=== PATIENT | female | born 1950 | race Caucasian/White ===

== ENCOUNTER 2025-05-16 12:49 | Emergency (ER) | payer MEDICARE, OTHER, SELFPAY ==
[2025-05-16] VITALS (8 sets, daily range): BP systolic 136–174; BP diastolic 69–86; PULSE 55–82; RESP 18–20; TEMP 36.7; O2SAT 99–100; BMI 22.4
--- NOTE | 2025-05-16 13:04 | ED_ITS ---
HPI - General Adult General Chief complaint: Neuro Symptoms/Deficit Stated complaint: ED to ED for MRI Time Seen by Provider: 05/16/25 13:04 History of Present Illness HPI narrative: [place]. [place] and [facility] neurology, Dr. Scott has been involved with care and needs MRI for the brain without contrast. Diagnosis of transient global amnesia. Not a stroke. I received report from the ER provider Dr. Post, you will be flying patient here for MRI of the brain. This is not for stroke workup. Does not need to be admitted for stroke. Her chief complaint is for memory loss. Occurred 830 this morning. Similar episode in December. Her memory in the department there was improving. Patient had CT of the head as well as CT angiogram head and neck. I spoke with and patient, patient had similar episode in December when they found out of her sister. Had memory loss for 24 hours and regained the next day. Today was very stressful as patient was on the phone with workers compensation attorney to take care of her sister's finances, she was on the phone with the workers compensation attorney and the workers compensation attorney said she would call her back and when she did call her back the patient did not recall talking to her just an hour prior. She is starting to regain her memory for today. She is remembering the of her sister this past summer. Related Data Allergies Allergy/AdvReac Type Severity Reaction Status Date / Time No Known Drug Allergies Allergy Verified 05/16/25 13:23 Review of Systems Review of Systems Narrative: GENERAL: Negative chills, fatigue, malaise, fever, sweats. HEENT: Negative sinus pain, ear pain, sore throat RESPIRATORY: Negative dyspnea, cough CARDIOVASCULAR: Negative chest pain, palpitations GASTROINTESTINAL: Negative vomiting, nausea, abdominal pain : Negative dysuria, frequency, hematuria MUSCULOSKELETAL: Negative muscle or bony pain SKIN: Negative rash, skin lesions NEUROLOGIC: Negative weakness, numbness, positive altered mental status ROS Unobtainable: All systems reviewed & are unremarkable except as noted in HPI and below Patient History Social History Smoking Status: Former smoker Exam Narrative Exam Narrative: GENERAL: in no distress, not toxic not dyspneic HEAD: Normocephalic. EYES: Pupils equal round ENT: Mucous membranes moist. NECK: Trachea midline. CARDIOVASCULAR: Regular rate and rhythm RESPIRATORY: Clear to auscultation. Breath sounds equal bilaterally. No wheezes, rales, or rhonchi. GASTROINTESTINAL: Abdomen soft, BACK: No flank tenderness. EXTREMITIES: No gross deformities. NEURO: SKIN: Warm and dry PSYCH: Not anxious, is cooperative Initial Vital Signs Initial Vital Signs: Vital Signs Temperature 98.0 F 05/16/25 13:14 Pulse Rate 66 05/16/25 13:14 Respiratory Rate 20 05/16/25 13:14 Blood Pressure 174/85 H 05/16/25 13:14 Pulse Oximetry 99 05/16/25 13:14 Oxygen Delivery Method Room Air 05/16/25 13:14 Course Orders Ordered: ED Orders 05/16/25 13:05 MR head/brain wo/w con Stat Vital Signs Vital signs: Vital Signs - 8 hr 05/16/25 13:14 Temperature 98.0 F Pulse Rate 66 Respiratory Rate 20 Blood Pressure 174/85 H Pulse Oximetry 99 Oxygen Delivery Method Room Air Medical Decision Making MDM Narrative Medical decision making narrative: Patient brought here by helicopter from [facility] for MRI of the brain. Patient has already seen provider on [facility] and [facility] neurology, Dr. Scott has been involved with care and needs MRI for the brain without contrast. Diagnosis of transient global amnesia. Not a stroke. I received report from the ER provider Dr. Post, you will be flying patient here for MRI of the brain. This is not for stroke workup. Does not need to be admitted for stroke. Her chief complaint is for memory loss. Occurred 830 this morning. Similar episode in December. Her memory in the department there was improving. Patient had CT of the head as well as CT angiogram head and neck. I spoke with and patient, patient had similar episode in December when they found out of her sister. Had memory loss for 24 hours and regained the next day. Today was very stressful as patient was on the phone with workers compensation attorney to take care of her sister's finances, she was on the phone with the workers compensation attorney and the workers compensation attorney said she would call her back and when she did call her back the patient did not recall talking to her just an hour prior. She is starting to regain her memory for today. She is remembering the of her sister this past summer. MDM After history and exam, MRI brain with and without contrast. Patient already had laboratory studies CT head CT angiogram head and neck prior to arrival. Differential considered: Includes but not limited to TIA stroke TGA Medical records reviewed: ER visit just prior to arrival Thursday, records were printed for us and brought here by flight Imaging studies independently reviewed: MRI brain Consultations: 1:45 p.m.. Spoke with [facility] neurologist, Dr. Scott, she has [place]. She confirms. Patient needs MRI of the brain. With and without contrast. 3:[address] Scott, [facility] tele stroke Neurology, she has reviewed MRI studies, no stroke. This is likely transient global amnesia as patient is improving with symptoms. Patient can be discharged home Re-evaluations: 3:20 p.m.. Updated patient results MRI and my discussion with tele stroke. She is remembering more of today. Reviewed with her this is transient global amnesia. Return precautions reviewed. She desires discharge home. Discussion: Appropriate for discharge home. Exam is reassuring. Tele stroke was consulted. Return precautions reviewed with patient and . They desire discharge home. Diagnosis: Transient global amnesia Discharge Plan Departure Patient Disposition: Home Clinical Impression: TGA (transient global amnesia) Instructions: DI for Transient Global Amnesia Activity Restrictions/Additional Instructions: Your laboratory studies and imaging studies are reassuring. Neurology services was contacted with [facility] and this is likely transient global amnesia likely related to the stress you have been going through. No new prescriptions are indicated. See your family doctor next week for re- evaluation. Return if worse if any questions or concerns. Referrals: Rufina Dasilva PA-C [Primary Care Provider, Family Practice] Stand Alone Forms: Patient Portal/API
--- NOTE | 2025-05-16 13:05 | DI.MRI.S_ITS ---
PROCEDURE: MR HEAD/BRAIN WO/W CON INDICATIONS: Altered mental status TECHNIQUE: Noncontrast axial T1 spin echo, axial T2 fast spin echo, sagittal and axial FLAIR, coronal T2 fast spin echo, axial gradient echo, axial diffusion and ADC through the brain. After the administration of contrast, axial and coronal and sagittal T1 spin echo with fat saturation through the brain. COMPARISON: None. FINDINGS: Image quality: Diagnostic CSF spaces: Basal cisterns are patent. No extra-axial fluid collections. Ventricles are normal in size and shape. Brain: No midline shift. No intracranial bleeds or masses. No abnormal intracranial enhancement. There is cerebral volume loss for age. There is mild periventricular white matter chronic small vessel ischemic change. The brainstem appears normal. Diffusion-weighted images demonstrate no acute infarct. No chronic ischemic insults. Normal intravascular flow voids are present. Skull and face: Calvarial marrow is normal in signal. Orbits appear normal. Sinuses: Sinuses and mastoids appear clear. IMPRESSION: No acute intracranial process. Approved by: Jenny Aponte M.D.,Ph.D. on 05/16/2025 at 15:02
--- NOTE | 2025-05-16 16:26 | PC.NURSE ---
ED provider verbally confirmed negative MRI results with radiology before discharge.
== END 2025-05-16 16:45 | disposition home or self-care (01) ==
PROVIDERS: Emergency Provider Emergency Medicine; PCP Physician Assistant
DX: G45.4 Transient global amnesia (principal)
CPT/HCPCS: 70553; 99281; 99284; A9579